=== PATIENT | female | born 1945 | race Caucasian/White ===

== ENCOUNTER → 2016-03-12 16:24 | Outpatient (CLI) | payer MEDICARE | END | disposition home or self-care (01) | LOC: D.MAMMO 15:45 | DX: Z12.31 Encounter for screening mammogram for malignant neoplasm of breast (principal) ==

== ENCOUNTER → 2017-04-09 14:53 | Outpatient (CLI) | payer MEDICARE, OTHER | END | disposition home or self-care (01) | LOC: D.CT 14:53 | DX: I73.9 Peripheral vascular disease, unspecified (principal) ==